=== PATIENT | male | born 1965 | race Caucasian/White ===

== ENCOUNTER 2018-08-03 00:55 | Outpatient (CLI) | payer BC, SELFPAY ==
--- NOTE | 2018-08-03 13:28 | DI.RAD_ITS ---
SYMPTOMS/DIAGNOSIS: LOW BACK PAIN, M54.5 LUMBAR SPINE: AP, lateral and bilateral oblique views. Comparison is 09/13/13. There are five lumbar-type vertebral bodies. No spondylolysis or spondylolisthesis is seen. At each level of the lumbar spine, there is joint space narrowing. Osteophytes are seen at the endplates throughout the lumbar spine. There is a vacuum disc at L5-S1. Degenerative changes of the facets are seen at L3-4 through L5-S1. No acute fractures or subluxations are present. The bones appear normally mineralized. IMPRESSION: Moderate degenerative changes in the lumbar spine.
== END 2018-08-03 01:15 ==
PROVIDERS: PCP Family Medicine; Visit Provider Physician Assistant Medical
DX: M54.5 Low back pain (principal); M51.37 Other intervertebral disc degeneration, lumbosacral region
CPT/HCPCS: 72110

== ENCOUNTER 2018-08-30 14:00 | Outpatient (REF) | payer BC, SELFPAY ==
[2018-08-30 19:34] LABS: ALT 47 U/L (12-78); AST 27 U/L (15-37); Albumin 4.4 g/dL (3.4-5.0); Alkaline Phosphatase 56 U/L (46-116); Anion Gap 8.1 mmol/L (3-11); BUN 25 mg/dL (7-18); Bilirubin, Total 0.6 mg/dL (0.2-1.0); CO2 29.9 mmol/L (21.0-32.0); CREATININE 1.04 mg/dL (0.70-1.30); Calcium 9.5 mg/dL (8.5-10.1); Chloride 101 mmol/L (98-107); Cholesterol 256 mg/dL (50-200); Glucose 82 mg/dL (70-100); HDL Cholesterol 43 mg/dL (40-60); LDL CHOLESTEROL 174 mg/dL (<100); Potassium 4.6 mmol/L (3.5-5.1); Sodium 139 mmol/L (136-145); Total Protein 7.5 g/dL (6.4-8.2); Triglyceride 189 mg/dL (30-150)
== END 2018-08-30 14:20 ==
LOC: NCHCN 14:00
PROVIDERS: PCP Family Medicine; Visit Provider Physician Assistant Medical
DX: E78.5 Hyperlipidemia, unspecified (principal); I10 Essential (primary) hypertension
CPT/HCPCS: 80053; 80061; 83721

== ENCOUNTER 2018-11-11 10:30 | Outpatient (REF) | payer BC, SELFPAY ==
[2018-11-11 19:22] LABS: HCT 45.1 % (40.0-50.0); HGB 15.1 g/dL (13.5-17.5); Mean Corp. HGB Concentration 33.5 g/dL (32.0-36.0); Mean Corpuscular Hemoglobin 30.4 pg (27.0-33.0); Mean Corpuscular Volume 90.7 fL (80-95); Mean Platelet Volume 9.2 fL (8.0-11.0); Platelet Count 254 x1000/uL (130-400); RBC 4.97 m/cumm (4.50-6.00); RBC Distribution Width 13.3 % (11.8-14.1); White Blood Cell Count 3.91 k/cumm (4.4-10.8)
[2018-11-11 19:38] LABS: Cholesterol 323 mg/dL (50-200); HDL Cholesterol 40 mg/dL (40-60); LDL CHOLESTEROL 218 mg/dL (<100); Triglyceride 305 mg/dL (30-150)
== END 2018-11-11 10:50 ==
LOC: NCHCN 10:30
PROVIDERS: PCP Family Medicine; Visit Provider Nurse Practitioner Family
DX: E78.5 Hyperlipidemia, unspecified (principal); I10 Essential (primary) hypertension
CPT/HCPCS: 80061; 83721; 85027

== ENCOUNTER 2019-01-05 15:23 | Outpatient (REF) | payer BC, SELFPAY ==
[2019-01-05 21:21] LABS: Anion Gap 10.7 mmol/L (3-11); BUN 16 mg/dL (7-18); CO2 28.3 mmol/L (21.0-32.0); CREATININE 1.03 mg/dL (0.70-1.30); Calcium 9.2 mg/dL (8.5-10.1); Chloride 101 mmol/L (98-107); Glucose 109 mg/dL (70-100); Potassium 4.4 mmol/L (3.5-5.1); Sodium 140 mmol/L (136-145)
== END 2019-01-05 15:43 ==
LOC: NCHCN 15:23
PROVIDERS: PCP Family Medicine; Visit Provider Nurse Practitioner Family
DX: E78.5 Hyperlipidemia, unspecified (principal); I10 Essential (primary) hypertension; M46.96 Unspecified inflammatory spondylopathy, lumbar region
CPT/HCPCS: 80048

== ENCOUNTER 2019-02-14 09:07 | Outpatient (REF) | payer BC, SELFPAY ==
[2019-02-14 21:40] LABS: Cholesterol 355 mg/dL (50-200); HDL Cholesterol 28 mg/dL (40-60); LDL CHOLESTEROL 191 mg/dL (<100); Magnesium 1.8 mg/dL (1.8-2.4); Triglyceride 693 mg/dL (30-150)
== END 2019-02-14 09:27 ==
LOC: NCHCN 09:07
PROVIDERS: PCP Family Medicine; Visit Provider Nurse Practitioner Family
DX: E78.6 Lipoprotein deficiency (principal); R25.2 Cramp and spasm
CPT/HCPCS: 80061; 83721; 83735

== ENCOUNTER 2019-03-16 21:14 | Outpatient (REF) | payer BC, SELFPAY ==
[2019-03-16 20:35] LABS: Cholesterol 272 mg/dL (50-200); HDL Cholesterol 28 mg/dL (40-60); LDL CHOLESTEROL 165 mg/dL (<100); Triglyceride 434 mg/dL (30-150)
== END 2019-03-16 21:34 ==
LOC: NCHCN 21:14
PROVIDERS: PCP Family Medicine; Visit Provider Nurse Practitioner Family
DX: E78.5 Hyperlipidemia, unspecified (principal)
CPT/HCPCS: 80061; 83721

== ENCOUNTER 2019-06-07 09:25 | Outpatient (REF) | payer BC, SELFPAY ==
[2019-06-07 20:53] LABS: ALT 52 U/L (12-78); AST 23 U/L (15-37); Calculated LDL 159 mg/dL; Cholesterol 249 mg/dL (50-200); HDL Cholesterol 30 mg/dL (40-60); Triglyceride 300 mg/dL (30-150)
[2019-06-07 21:16] LABS: Creatine Kinase 107 U/L (39-308)
== END 2019-06-07 09:45 ==
LOC: NCHCN 09:25
PROVIDERS: PCP Family Medicine; Visit Provider Nurse Practitioner Family
DX: E78.5 Hyperlipidemia, unspecified (principal)
CPT/HCPCS: 80061; 82550; 83721; 84450; 84460

== ENCOUNTER 2020-01-10 10:35 | Outpatient (REF) | payer BC, SELFPAY ==
[2020-01-10 21:32] LABS: ALT 61 U/L (16-63); AST 34 U/L (15-37); Anion Gap 7.8 mmol/L (3-11); BUN 20 mg/dL (7-18); CO2 30.2 mmol/L (21.0-32.0); CREATININE 0.98 mg/dL (0.70-1.30); Calculated LDL 148 mg/dL (<100); Chloride 104 mmol/L (98-107); Cholesterol 240 mg/dL (<200); Glucose 96 mg/dL (74-106); HDL Cholesterol 31 mg/dL (40-60); Potassium 4.7 mmol/L (3.5-5.1); Sodium 142 mmol/L (136-145); Triglyceride 308 mg/dL (<150)
== END 2020-01-10 10:55 ==
LOC: NCHCN 10:35
PROVIDERS: PCP Family Medicine; Visit Provider Nurse Practitioner Family
DX: E78.5 Hyperlipidemia, unspecified (principal); I10 Essential (primary) hypertension
CPT/HCPCS: 80048; 80061; 84450; 84460

== ENCOUNTER 2020-07-10 11:43 | Outpatient (REF) | payer BC, SELFPAY ==
[2020-07-10 21:05] LABS: Cholesterol 258 mg/dL (<200); HDL Cholesterol 32 mg/dL (40-60); Triglyceride 418 mg/dL (<150)
[2020-07-10 22:40] LABS: LDL CHOLESTEROL 151 mg/dL (<100)
== END 2020-07-10 12:03 ==
LOC: NCHCN 11:43
PROVIDERS: PCP Family Medicine; Visit Provider Nurse Practitioner Family
DX: E78.5 Hyperlipidemia, unspecified (principal)
CPT/HCPCS: 80061; 83721

== ENCOUNTER 2020-10-07 09:23 | Outpatient (REF) | payer BC, SELFPAY ==
[2020-10-07 20:47] LABS: Calculated LDL 140 mg/dL (<100); Cholesterol 240 mg/dL (<200); HDL Cholesterol 32 mg/dL (40-60); Triglyceride 344 mg/dL (<150)
== END 2020-10-07 09:43 ==
LOC: NCHCN 09:23
PROVIDERS: PCP Family Medicine; Visit Provider Nurse Practitioner Family
DX: E78.5 Hyperlipidemia, unspecified (principal)
CPT/HCPCS: 80061

== ENCOUNTER 2021-01-09 11:46 | Outpatient (REF) | payer BC, SELFPAY ==
[2021-01-09 18:11] LABS: BUN 18 mg/dL (7-18); Calcium 9.4 mg/dL (8.5-10.1); Chloride 103 mmol/L (98-107); Glucose 96 mg/dL (74-106); Sodium 140 mmol/L (136-145)
== END 2021-01-09 11:47 | disposition home or self-care (01) ==
LOC: NCHCN 11:46
PROVIDERS: PCP Family Medicine; Visit Provider Nurse Practitioner Family
DX: I10 Essential (primary) hypertension (principal); R25.2 Cramp and spasm
CPT/HCPCS: 80048

== ENCOUNTER 2021-10-28 09:25 | Outpatient (REF) | payer BC, SELFPAY ==
[2021-10-28 12:46] LABS: ALT 55 U/L (16-63); AST 27 U/L (15-37); Calculated LDL 128 mg/dL (<100); Cholesterol 205 mg/dL (<200); HDL Cholesterol 41 mg/dL (40-60); Triglyceride 184 mg/dL (<150)
[2021-10-28 12:58] LABS: Creatine Kinase 160 U/L (39-308)
== END 2021-10-28 09:26 | disposition home or self-care (01) ==
LOC: NCHCN 09:25
PROVIDERS: PCP Family Medicine; Visit Provider Nurse Practitioner Family
DX: E78.5 Hyperlipidemia, unspecified (principal)
CPT/HCPCS: 80061; 82550; 84450; 84460

== ENCOUNTER 2022-02-23 08:09 | Outpatient (REF) | payer BC, SELFPAY ==
[2022-02-23 15:34] LABS: Anion Gap 6.7 mmol/L (3-11); BUN 24 mg/dL (7-18); CO2 30.3 mmol/L (21.0-32.0); CREATININE 0.8 mg/dL (0.70-1.30); Calcium 9.3 mg/dL (8.5-10.1); Chloride 104 mmol/L (98-107); Glucose 139 mg/dL (74-106); Potassium 4.8 mmol/L (3.5-5.1); Sodium 141 mmol/L (136-145)
== END 2022-02-23 08:10 | disposition home or self-care (01) ==
LOC: NCHCN 08:09
PROVIDERS: PCP Family Medicine; Visit Provider Nurse Practitioner Family
DX: I10 Essential (primary) hypertension (principal)
CPT/HCPCS: 80048

== ENCOUNTER 2022-10-21 10:02 | Outpatient (REF) | payer BC, SELFPAY ==
[2022-10-21 16:38] LABS: ALT 54 U/L (16-63); AST 35 U/L (15-37); Creatine Kinase 256 U/L (39-308)
[2022-10-21 16:51] LABS: Calculated LDL 124 mg/dL (<100); Cholesterol 200 mg/dL (<200); HDL Cholesterol 43 mg/dL (40-60); Triglyceride 169 mg/dL (<150)
== END 2022-10-21 10:03 | disposition home or self-care (01) ==
LOC: NCHCN 10:02
PROVIDERS: PCP Family Medicine; Visit Provider Nurse Practitioner Family
DX: E78.5 Hyperlipidemia, unspecified (principal)
CPT/HCPCS: 80061; 82550; 84450; 84460

== ENCOUNTER 2023-02-02 17:26 | Emergency (ER) | payer BC, SELFPAY ==
[2023-02-02 17:36] VITALS: BP 165/108; PULSE 88; RESP 18; O2SAT 96
[2023-02-02 17:43] VITALS: TEMP 36.7
--- NOTE | 2023-02-02 17:45 | DI.RAD_ITS ---
Exam(s) XR KNEE RT 3V AP,LAT,VIANCA EXAM: XR KNEE RT 3V AP,LAT,VIANCA CLINICAL HISTORY: swollen knee. TECHNIQUE: 2D digital imaging was performed. Three views. COMPARISON: No exams were available for comparison FINDINGS: BONES: No acute fracture is present. No bony destructive lesion is seen. Small patellar enthesophyt e. JOINTS: The knee is normally aligned. No joint effusion is seen. SOFT TISSUE: Marked anterior soft tissue swelling. IMPRESSION: Anterior soft tissue swelling could indicate prepatellar bursitis. DATA REPOSITORY: RADIATION DOSE DELIVERED:
--- NOTE | 2023-02-02 18:06 | ED.GENADUL_ITS ---
Discharge Plan Disposition Patient Disposition: Home Discharge Details Clinical Impression: Bursitis, prepatellar, right Primary Care Provider: Elayne Wells V ED Provider: Marcelo Perez Home Meds and New Rx's Prescriptions: Continued celecoxib [Celebrex] 200 MG capsule 200 mg PO DAILY Patient Comments: takes it once a day 5 days a week and two days a week twice a day fenofibrate micronized 134 MG capsule 134 mg PO DAILY acetaminophen [Tylenol Arthritis Pain] 650 MG tablet extended release 1,300 mg PO BID flaxseed oil 1,000 MG capsule 1,200 mg PO DAILY Patient Comments: not taking fluticasone propionate 16 GM spray,suspension 16 gm NS DAILY PRN cholecalciferol (vitamin D3) [Vitamin D3] 1,000 UNIT capsule 2,000 unit PO DAILY levalbuterol tartrate [Xopenex HFA] 15 GM HFA aerosol inhaler 1 puff Inhalation PRN PRN fish oil-dha-epa 1 EACH capsule 1 cap PO DAILY niacin (inositol niacinate) 500 MG capsule 500 mg PO DAILY Patient Comments: not taking [employer] 1 EACH tablet 1 tab PO DAILY pravastatin 10 mg tablet 10 mg PO DAILY fluticasone propionate [Flovent HFA] 110 mcg/actuation HFA aerosol inhaler 2 inh INHALATION BID ezetimibe 10 mg tablet 10 mg PO DAILY Patient Comments: TAKE ONE TABLET BY MOUTH EVERY DAY Discharge Instructions Instructions: Knee Bursitis (ED) Additional Instructions: If you develop any fever chills, worsening of symptoms, or difficulty with planning joint return immediately to the emergency department for reassessment. Otherwise you may continue to use your acetaminophen and Celebrex that you are already prescribed. Please rest over the next couple days and slowly advance activity as tolerated. If not improving follow-up with your primary care provider next week for reassessment Stand Alone Forms: Work Release Referrals: Elayne Wells MD [Primary Care Provider] - 1 week Medical Decision Making Patient presenting to the emergency department for chief complaint of right knee swelling and warmth that just started 2 hours ago. Patient denies any injury or trauma. Does state he has been standing a lot recently for work but denies any other symptoms. Patient has full range of motion of the knee, denies fever chills, denies pain just states slight ache occasionally and only pain is with palpation to the area but at rest states no pain or other discomfort. Patient denies all other symptoms. Physical exam shows erythema warmth and swelling to the right knee in the prepatellar area. Some effusion is noted. Patient does have full range of motion of knee. Physical exam findings are consistent with prepatellar bursitis. At this time doubt infectious bursitis or septic joint. Patient's vital signs are stable beyond noted elevated blood pressure. Radiological imaging was performed and is unremarkable. Patient discharged with recommendation to continue conservative management, given work note for rest, and patient to have low threshold to return for any new or significant worsening of symptoms given that symptoms only started a couple hours prior to arrival. It was noted on discharge that patient continued being hypertensive. He states significant whitecoat syndrome. Patient was recommended to take his normally prescribed medications and follow-up with primary care provider for recheck of his knee along with his elevated blood pressure. After discussion of diagnosis and plan of care patient has no further needs, questions, or concerns and states clear understanding to return to the emergency department for any worsening symptoms. This documentation was generated using [employer] system, please disregard any oddities of phrase or misspellings. Imaging Data Radiologic Study: Attestation: I personally reviewed and interpreted this imaging study as follows: Imaging: X-Ray Radiologist's impression: Exam(s) PROCEDURE INFORMATION: Exam: XR Right Knee Exam date and time: 02/02/2023 6:19 PM Age: 57 years old Clinical indication: Pain; Knee; Right TECHNIQUE: Imaging protocol: Radiologic exam of the right knee. Views: 3 views. COMPARISON: No relevant prior studies available. FINDINGS: Bones/joints: There is no evidence of acute fracture.There is no evidence of malalignment or dislocation. Soft tissues: Normal. IMPRESSION: There is no evidence of acute fracture.There is no evidence of malalignment or dislocation. HPI General Mode of arrival: ambulatory . Date/Time Provider Initiated Documentation: 02/02/23 17:34 . Limitations to Documentation: no limitations . Information obtained by: patient and RN notes reviewed . History of Present Illness 57 year old M presents to the emergency department with the chief complaint of Swollen right knee, described as mild, with intensity rated at 1. Quality is described as aching, and is localized to the right and lower extremity. Patient reports no radiation. Patient started experiencing this hour(s) (2) and it has been constant. No relieving factors improve symptom(s), No exacerbating factors reported . Patient notes no other symptoms.. Patient did receive the following treatments prior to arrival, none Related Data Home Medications Medication Instructions Recorded Confirmed acetaminophen 650 mg 1,300 mg PO BID 04/11/17 02/02/23 tablet,extended release (Tylenol Arthritis Pain) celecoxib 200 mg capsule (Celebrex) 200 mg PO DAILY 04/11/17 02/02/23 cholecalciferol (vitamin D3) 25 2,000 unit PO DAILY 04/11/17 02/02/23 mcg (1,000 unit) capsule (Vitamin D3) fenofibrate micronized 134 mg 134 mg PO DAILY 04/11/17 02/02/23 capsule fish oil-dha-epa 1,200 mg-144 1 cap PO DAILY 04/11/17 02/02/23 mg-216 mg capsule flaxseed oil 1,000 mg capsule 1,200 mg PO DAILY 04/11/17 09/10/17 fluticasone propionate 50 16 gm NS DAILY PRN 04/11/17 02/02/23 mcg/actuation nasal spray,suspension levalbuterol tartrate 45 1 puff inhalation PRN PRN 04/11/17 02/02/23 mcg/actuation aerosol inhaler (Xopenex HFA) gh-dn-yxor-[id number]-vit K-ginseng 18 mg 1 tab PO DAILY 04/11/17 02/02/23 iron-400 [id number] tablet ([employer]) niacin (inositol niacinate) 500 mg 500 mg PO DAILY 04/11/17 09/10/17 capsule ezetimibe 10 mg tablet 10 mg PO DAILY 02/02/23 02/02/23 fluticasone propionate 110 2 inh inhalation BID 02/02/23 02/02/23 mcg/actuation HFA aerosol inhaler (Flovent HFA) pravastatin 10 mg tablet 10 mg PO DAILY 02/02/23 02/02/23 Allergies Allergy/AdvReac Type Severity Reaction Status Date / Time No Known Allergies Allergy Unverified 02/02/23 17:37 General Stated Complaint: Orthopedic RAMONE: 4 Review of Systems Constitutional Constitutional: Denies chills and Denies fever(s) Cardiovascular Cardiovascular: Denies chest pain, Denies pedal edema and Denies edema Musculoskeletal Musculoskeletal: Reports as per HPI, Denies arthralgias, Reports joint swelling and Denies limited range of motion Integumentary/Breasts Skin/Breast: Reports erythema and Denies sores PFSH All Active Problems (Updated 02/02/23 @ 19:04 by Marcelo Perez NP) Bursitis, prepatellar, right (Acute) History of lumbar surgery (Acute) Actinic keratosis (Acute) Medical History (Updated 02/02/23 @ 19:04 by Marcelo Perez NP) Asthma Hyperlipidemia Surgical History (Updated 02/02/23 @ 18:08 by Marcelo Perez NP) Colonoscopy - MAC (09/10/17) Social History Smoking/Tobacco Use Status: Never Smoking risk assessment performed?: Yes Drug use: Never Substance use type: does not use Do you feel safe in your relationship?: Yes Exam Const General: cooperative, no acute distress and not ill appearing Orientation: alert, awake and oriented x3 HENMT Mouth: moist mucous membranes Resp Effort & Inspection: normal respiratory effort, able to speak in complete sentences and no respiratory distress Cardio Rate: regular rate Rhythm: regular rhythm Pulses: normal peripheral pulses Skin General skin exam: no rashes or lesions noted Neuro General: patient alert, patient awake, patient oriented x3, moves all extremities and no focal motor deficits Sensory Exam: no sensory deficits noted Extrem General: normal exam except as noted Right lower extremity: knee Details: abnormal to inspection Details: erythematous, tenderness Location: of the pre-patellar area, swelling Location: of the pre-patellar area, normal ROM and warmth Location: anteriorly; not of the entire knee joint; no abrasions, no lacerations, no ecchymosis, no crepitus and no penetrating wound Course Vital Signs Vital signs: Vital Signs Pulse 88 02/02/23 17:36 Respiratory Rate 18 02/02/23 17:36 Blood Pressure 165/108 H 02/02/23 17:36 Pulse Oximetry 96 02/02/23 17:36 Temperature 36.7 C 02/02/23 17:43 Temperature Source Tympanic 02/02/23 17:43 Pulse 88 02/02/23 17:36 Respiratory Rate 18 02/02/23 17:36 Respiratory Effort Normal, Non-Labored 02/02/23 17:37 Blood Pressure 165/108 H 02/02/23 17:36 Pulse Oximetry 96 02/02/23 17:36 Oxygen Delivery Method Room Air 02/02/23 17:36 Oxygen Flow Rate 0 02/02/23 17:36
--- NOTE | 2023-02-02 18:38 | NUR.NOTE ---
Nursing Note: Referral faxed to PCP for prepatellar bursitis for the first of next week.
--- NOTE | 2023-02-02 18:54 | DI.VRAD_ITS ---
PROCEDURE INFORMATION: Exam: XR Right Knee Exam date and time: 02/02/2023 6:19 PM Age: 57 years old Clinical indication: Pain; Knee; Right TECHNIQUE: Imaging protocol: Radiologic exam of the right knee. Views: 3 views. COMPARISON: No relevant prior studies available. FINDINGS: Bones/joints: There is no evidence of acute fracture.There is no evidence of malalignment or dislocation. Soft tissues: Normal. IMPRESSION: There is no evidence of acute fracture.There is no evidence of malalignment or dislocation. Dictated and Authenticated by: Rachel Carpenter MD. Ordering:EBEN Robertson MD
[2023-02-02 19:15] VITALS: BP 170/110; PULSE 89; RESP 20; O2SAT 97
--- NOTE | 2023-02-02 22:18 | NUR.NOTE ---
Referral made per Charanjit Perez for prepatellar bursitis, right next week. Put the referral in the care manger's box for follow up assistance.Nursing Note:
== END 2023-02-02 19:16 | disposition home or self-care (01) ==
PROVIDERS: Emergency Provider Nurse Practitioner Family; PCP Family Medicine
DX: M70.41 Prepatellar bursitis, right knee (principal); J45.909 Unspecified asthma, uncomplicated
CPT/HCPCS: 73562; 99283

== ENCOUNTER 2023-02-10 17:27 | Outpatient (REF) | payer BC, SELFPAY ==
[2023-02-10 14:12] LABS: Anion Gap 8.5 mmol/L (3-11); BUN 31 mg/dL (7-18); CO2 28.5 mmol/L (21.0-32.0); CREATININE 1.3 mg/dL (0.70-1.30); Chloride 103 mmol/L (98-107); Estimated GFR 64.07 (mL/min/1.73m2); Glucose 113 mg/dL (74-106); Potassium 4.8 mmol/L (3.5-5.1); Sodium 140 mmol/L (136-145)
== END 2023-02-10 17:28 | disposition home or self-care (01) ==
LOC: NCHCN 17:27
PROVIDERS: PCP Family Medicine; Visit Provider Nurse Practitioner Family
DX: I10 Essential (primary) hypertension (principal)
CPT/HCPCS: 80048

== ENCOUNTER 2023-08-31 11:56 | Outpatient (REF) | payer BC, SELFPAY ==
[2023-08-31 15:57] LABS: Calculated LDL 128 mg/dL (<100); Cholesterol 223 mg/dL (<200); HDL Cholesterol 43 mg/dL (40-60); Triglyceride 262 mg/dL (<150)
== END 2023-08-31 11:57 | disposition home or self-care (01) ==
LOC: NCHCN 11:56
PROVIDERS: PCP Family Medicine; Visit Provider Nurse Practitioner Family
DX: E78.5 Hyperlipidemia, unspecified (principal); R73.09 Other abnormal glucose
CPT/HCPCS: 80061; 83036

== ENCOUNTER 2024-02-28 14:25 | Outpatient (REF) | payer BC, SELFPAY ==
[2024-02-28 15:32] LABS: Anion Gap 8.1 mmol/L (3-11); BUN 32 mg/dL (7-18); CO2 29.9 mmol/L (21.0-32.0); CREATININE 1.3 mg/dL (0.70-1.30); Calcium 9.6 mg/dL (8.5-10.1); Chloride 100 mmol/L (98-107); Estimated GFR 63.68 (mL/min/1.73m2); Glucose 116 mg/dL (74-106); Potassium 5.8 mmol/L (3.5-5.1); Sodium 138 mmol/L (136-145)
[2024-02-28 16:46] LABS: Hemoglobin A1C 6.1 % (<5.7)
== END 2024-02-28 14:26 | disposition home or self-care (01) ==
LOC: NCHCN 14:25
PROVIDERS: PCP Family Medicine; Visit Provider Nurse Practitioner Family
DX: I10 Essential (primary) hypertension (principal); R73.9 Hyperglycemia, unspecified
CPT/HCPCS: 80048; 83036

== ENCOUNTER 2024-03-16 14:40 | Outpatient (REF) | payer BC, SELFPAY ==
[2024-03-16 16:20] LABS: Anion Gap 9.7 mmol/L (3-11); BUN 28 mg/dL (7-18); CO2 27.3 mmol/L (21.0-32.0); CREATININE 1.2 mg/dL (0.70-1.30); Calcium 9.3 mg/dL (8.5-10.1); Chloride 102 mmol/L (98-107); Glucose 110 mg/dL (74-106); Potassium 4.9 mmol/L (3.5-5.1); Sodium 139 mmol/L (136-145)
== END 2024-03-16 14:41 | disposition home or self-care (01) ==
LOC: NCHCN 14:40
PROVIDERS: PCP Family Medicine; Visit Provider Nurse Practitioner Family
DX: I10 Essential (primary) hypertension (principal)
CPT/HCPCS: 80048

== ENCOUNTER 2024-08-08 08:49 | Outpatient (REF) | payer BC, SELFPAY ==
[2024-08-08 15:12] LABS: ALT 63 U/L (16-63); AST 35 U/L (15-37); Albumin 4.4 g/dL (3.4-5.0); Alkaline Phosphatase 65 U/L (46-116); Anion Gap 6.6 mmol/L (3-11); BUN 21 mg/dL (7-18); Bilirubin, Total 0.57 mg/dL (0.2-1.0); CO2 31.4 mmol/L (21.0-32.0); Calcium 9.6 mg/dL (8.5-10.1); Calculated LDL 132 mg/dL (<100); Chloride 102 mmol/L (98-107); Cholesterol 248 mg/dL (<200); Estimated GFR 87.24 (mL/min/1.73m2); Glucose 122 mg/dL (74-106); HDL Cholesterol 41 mg/dL (40-60); Sodium 140 mmol/L (136-145); Total Protein 8.2 g/dL (6.4-8.2); Triglyceride 377 mg/dL (<150)
== END 2024-08-08 08:50 | disposition home or self-care (01) ==
LOC: NCHCN 08:49
PROVIDERS: PCP Family Medicine; Visit Provider Physician Assistant Medical
DX: E78.5 Hyperlipidemia, unspecified (principal); R73.03 Prediabetes
CPT/HCPCS: 80053; 80061; 83036

== ENCOUNTER 2025-05-21 10:02 | Outpatient (REF) | payer BC, SELFPAY ==
[2025-05-21 17:28] LABS: ALT 67 U/L (16-63); AST 33 U/L (15-37); Albumin 4.7 g/dL (3.4-5.0); Alkaline Phosphatase 57 U/L (46-116); Anion Gap 8.1 mmol/L (3-11); BUN 24 mg/dL (7-18); Bilirubin, Total 0.6 mg/dL (0.2-1.0); CO2 26.9 mmol/L (21.0-32.0); Calcium 9.3 mg/dL (8.5-10.1); Calculated LDL 122 mg/dL (<100); Chloride 101 mmol/L (98-107); Cholesterol 209 mg/dL (<200); Estimated GFR 86.70 (mL/min/1.73m2); Glucose 132 mg/dL (74-106); HDL Cholesterol 42 mg/dL (>or=40); Potassium 5.0 mmol/L (3.5-5.1); Sodium 136 mmol/L (136-145); Total Protein 7.9 g/dL (6.4-8.2); Triglyceride 228 mg/dL (<150)
[2025-05-21 20:01] LABS: Hemoglobin A1C 6.1 % (<5.7)
[2025-05-22 18:53] LABS: PSA, Screening 0.8 ng/mL (<=3.5)
== END 2025-05-21 10:03 | disposition home or self-care (01) ==
LOC: NCHCN 10:02
PROVIDERS: PCP Family Medicine; Visit Provider Physician Assistant Medical
DX: Z12.5 Encounter for screening for malignant neoplasm of prostate (principal); R73.03 Prediabetes; E78.5 Hyperlipidemia, unspecified; I10 Essential (primary) hypertension
CPT/HCPCS: 80053; 80061; 84153; 83036

== ENCOUNTER 2025-08-07 08:13 | Outpatient (REF) | payer BC, SELFPAY ==
[2025-08-07 15:53] LABS: ALT 71 U/L (16-63); AST 33 U/L (15-37); Albumin 4.4 g/dL (3.4-5.0); Alkaline Phosphatase 65 U/L (46-116); Bilirubin, Direct 0.2 mg/dL (0.0-0.2); Bilirubin, Total 0.5 mg/dL (0.2-1.0); Total Protein 7.3 g/dL (6.4-8.2)
[2025-08-08 10:50] LABS: Hepatitis C Ab w Rflx HCV PCR Negative (Negative)
== END 2025-08-07 08:14 | disposition home or self-care (01) ==
LOC: NCHCN 08:13
PROVIDERS: PCP Family Medicine; Visit Provider Physician Assistant Medical
DX: R79.89 Other specified abnormal findings of blood chemistry (principal)
CPT/HCPCS: 80076; 86803